=== PATIENT | female | born 1980 | race American Indian/Alaskan Native ===

== ENCOUNTER 2018-03-20 17:01 | Inpatient (IN) | payer BC, MEDICAID ==
--- NOTE | 2018-03-20 17:52 | History and Physical Report ---
<CHERYL WOODS - Last Filed: 03/20/18 18:35> History of Present Illness Date of examination: 03/20/18 (Sent in by [facility] for delivery; SROM 1415) Date of admission: 03/20/18 17:01 History of present illness: EDC Confirmation: 04/09/2018 Gestational Age: 7 3/7 weeks Past History : 4 # 1 Weeks Gestation: term Anesthesia type: none Delivery location: [place] Sex: Male weight: 6-12 Past Medical History: Reviewed history from 08/02/2010 and no changes required: Hypertension Past Medical History Abnormal PAP: positive SABIHA Exposure: negative Infertility: negative Uterine Anomaly: negative Uterine Surgery (not C/S): negative Other Gynecologic Problems: negative Social Hx: Patient is single Smoking History: Patient has never smoked. Infection History Hx of STD: none HIV Risk Eval: low risk Hepatitis B Risk Eval: low risk Personal hx. of genital herpes: no Partner hx. of genital herpes: no Rash, Viral, or Febrile illness since last LMP? no Varicella/Chicken Pox Status: Previous Disease TB Risk: no Genetic History ADVANCED MATERNAL AGE Congenital Heart Defect: Mom: no Dad: no Belia Disease: Mom: no Dad: no Thalassemia Mom: no Dad: no Neural Tube Defect Mom: no Dad: no Down's Syndrome Mom: no Dad: no Jamal-Sachs Mom: no Dad: no Sickle Cell Disease/Trait Mom: no Dad: no Hemophilia Mom: no Dad: no Muscular Dystrophy Mom: no Dad: no Cystic Fibrosis Mom: no Dad: no [place] Chorea Mom: no Dad: no Mental Retardation Mom: no Dad: no Fragile X Mom: no Dad: no Other Genetic/Chromosomal Disorder Mom: no Dad: no Child w/other defect Mom: no Dad: no Enviromental Exposures Xray Exposure: no Medication, drug, or alcohol use since LMP: no Chemical/Other Exposure: no Exposure to Cat Liter: no Hx of Parvovirus (Fifth Disease): no Occupational Exposure to Children: none Active Medications (reviewed today): PLUS 27-1 MG TABS ( VIT-FE FUMARATE-FA) 1 po qd LABETALOL HCL 200 MG ORAL TABS (LABETALOL HCL) 1 tab po bid BIOTIN () Current Allergies (reviewed today): CIPRO (Critical) Laboratory Results Routine Urinalysis Leukocytes: negative Nitrite: negative Urobilinogen: negative Protein: negative Blood: negative Ketone: negative Bilirubin: negative Glucose: negative Urine HCG: positive Review of Systems General Denies fever, chills, sweats, anorexia, fatigue, weakness, malaise, weight loss and sleep disorder. Denies nausea, vomiting, headache, swelling of legs, abdominal pain, vaginal discharge, vaginal bleeding and contractions. Denies vaginal discharge, incontinence, dysuria, hematuria, urinary frequency, amenorrhea, menorrhagia, abnormal vaginal bleeding, pelvic pain, genital sores, decreased libido, painful periods, painful sex, urinary urgency, hot flashes, vaginal dryness, vaginal itching and vaginal odor. CV Denies chest pains, palpitations, syncope, dyspnea on exertion, orthopnea, PND and peripheral edema. Resp Denies cough, dyspnea at rest, excessive sputum, hemoptysis, wheezing and pleurisy. GI Denies nausea, vomiting, diarrhea, constipation, change in bowel habits, abdominal pain, melena, hematochezia, jaundice, gas/bloating, indigestion/ heartburn, dysphagia and odynophagia. Endo Denies cold intolerance, heat intolerance, polydipsia, polyphagia, polyuria and unusual weight change. Breast Denies left breast lump, right breast lump, nipple discharge, bloody discharge from nipple, breast pain, abnormal mammogram and breast enlargement. MS Denies back pain, joint pain, joint swelling, muscle cramps, muscle weakness, stiffness, arthritis, sciatica, restless legs, leg pain at night and leg pain with exertion. Derm Denies rash, itching, dryness and suspicious lesions. Neuro Denies paralysis, paresthesias, headache, seizures, tremors, vertigo, transient blindness, frequent falls, frequent headaches and difficulty walking. Psych Denies depression, anxiety, irritability and mood swings. Eyes Denies blurring, diplopia, irritation, discharge, vision loss, eye pain and photophobia. ENT Denies earache, ear discharge, tinnitus, decreased hearing, nasal congestion, nosebleeds, sore throat and hoarseness. Allergy Denies urticaria, allergic rash, hay fever and recurrent infections. Heme Denies abnormal bruising, bleeding and enlarged lymph nodes. Past History - Obstetrical History Expected Date of Delivery: 04/09/18 Actual Gestation: 37 Week(s) 1 Day(s) : 4 Para: 1 Hx # Term Pregnancies: 1 Spontaneous Abortions: 2 Number of Living Children: 1 Medications and Allergies Allergies Allergy/AdvReac Type Severity Reaction Status Date / Time No Known Allergies Allergy Unverified 03/20/18 18:16 - Vital Signs Vital signs: Vital Signs Pulse BP 96 H 144/80 03/20/18 17:35 03/20/18 17:35 Temp Pulse Resp BP Pulse Ox 93 H 138/84 03/20/18 17:50 03/20/18 17:50 - Physical Exam Breasts: Positive: deferred Cardiovascular: Regular rate, Normal S1, Normal S2 Lungs: Positive: Normal air movement Abdomen: Positive: normal appearance, soft, normal bowel sounds. Negative: distention, tenderness Genitourinary (Female): Positive: normal external genitalia, normal perenium Vulva: both: normal Vagina: Positive: normal moisture. Negative: discharge Cervix: Negative: lesion, discharge Uterus: Positive: normal size, normal contour Adnexa: both: normal Anus/Rectum: Positive: normal perianal skin, heme negative. Negative: rectal mass, hemorrhoids Extremities: Positive: edema Deep Tendon Reflex Grade: Normal +2 - Obstetrical FHR: category 1 Uterine Contraction Monitor Mode: External Cervical Dilatation: 1 (clear fluid noted) Cervical Effacement Percentage: 50 station: -3 Uterine Contraction Pattern: Irregular Uterine Tone Measurement Phase: Resting Uterine Contraction Intensity: Mild Results All other labs normal. Strep Gp B MARY Negative 03-05-18 HBsAg Screen Negative Negative *1 RPR Non Reactive Non Reactive *2 Rubella Antibodies, IgG 15.40 index Immune >0.99 *3 Non-immune <0.90 Equivocal 0.90 - 0.99 Immune >0.99 ABO Grouping B *4 Rh Factor Positive *5 Please note: Prior records for this patient's ABO / Rh type are not available for additional verification. Antibody Screen Negative Negative *6 WBC 7.7 x10E3/uL 3.4-10.8 *7 RBC 4.29 x10E6/uL 3.77-5.28 *8 Hemoglobin 12.2 g/dL 11.1-15.9 *9 Hematocrit 35.5 % 34.0-46.6 *10 MCV 83 fL 79-97 *11 MCH 28.4 pg 26.6-33.0 *12 MCHC 34.4 g/dL 31.5-35.7 *13 RDW 14.1 % 12.3-15.4 *14 Platelets 318 x10E3/uL 150-379 *15 Neutrophils 62 % Not Estab. *16 Lymphs 27 % Not Estab. *17 Monocytes 10 % Not Estab. *18 Eos 1 % Not Estab. *19 Basos 0 % Not Estab. *20 ! Immature Cells <No Reported Value> *21 Neutrophils (Absolute) 4.8 x10E3/uL 1.4-7.0 *22 Lymphs (Absolute) 2.0 x10E3/uL 0.7-3.1 *23 Monocytes(Absolute) 0.7 x10E3/uL 0.1-0.9 *24 Eos (Absolute) 0.1 x10E3/uL 0.0-0.4 *25 Baso (Absolute) 0.0 x10E3/uL 0.0-0.2 *26 ! Immature Granulocytes 0 % Not Estab. *27 ! Immature Grans (Abs) 0.0 x10E3/uL 0.0-0.1 *28 ! NRBC <No Reported Value> *29 Hematology Comments: <No Reported Value> *30 Tests: (2) Comp. Metabolic Panel (14) (135208) Glucose, Serum [L] 58 mg/dL 65-99 *31 BUN 8 mg/dL 6-20 *32 Creatinine, Serum 0.85 mg/dL 0.57-1.00 *33 ! eGFR If NonAfricn Am 87 mL/min/1.73 >59 *34 ! eGFR If Africn Am 101 mL/min/1.73 >59 *35 BUN/Creatinine Ratio 9 9-23 *36 Sodium, Serum 138 mmol/L 134-144 *37 Potassium, Serum 4.5 mmol/L 3.5-5.2 *38 Chloride, Serum 100 mmol/L 96-106 *39 Carbon Dioxide, Total 22 mmol/L 18-29 *40 Calcium, Serum 10.0 mg/dL 8.7-10.2 *41 Protein, Total, Serum 7.5 g/dL 6.0-8.5 *42 Albumin, Serum 4.0 g/dL 3.5-5.5 *43 Globulin, Total 3.5 g/dL 1.5-4.5 *44 A/G Ratio [L] 1.1 1.2-2.2 *45 Bilirubin, Total 0.7 mg/dL 0.0-1.2 *46 Alkaline Phosphatase, S 51 IU/L 39-117 *47 AST (SGOT) 23 IU/L 0-40 *48 ALT (SGPT) 13 IU/L 0-32 *49 Tests: (3) LD Isoenzymes (942642) LDH 212 IU/L 119-226 *50 (LD) Fraction 1 27 % 17-32 *51 (LD) Fraction 2 33 % 25-40 *52 (LD) Fraction 3 23 % 17-27 *53 (LD) Fraction 4 8 % 5-13 *54 (LD) Fraction 5 9 % 4-20 *55 Tests: (4) Creatinine Clearance (927193) Creatinine, Urine 107.7 mg/dL Not Estab. *56 Creatinine, Ur 24hr 1189 mg/24 hr 800-1800 *57 Creatinine Clearance 97 mL/min 88-128 *58 The above range is based on 1.73 square meter average body surface area. Tests: (5) Cystic Fibrosis Profile (520261) ! CF, Screen Comment: *59 RESULTS: Negative for 32 mutations analyzed Tests: (6) Protein Total, Qn, 24-Hr Urine (751546) Protein,Total,Urine 22.3 mg/dL Not Estab. *61 Prot,24hr calculated [H] 246 mg/24 hr 30-150 *62 Tests: (7) HB Solu + Rflx [facility] (478384) Hemoglobin (Hgb) Solubility Negative Negative *63 Tests: (8) Panel 501726 (453891) HIV Screen 4th Generation wRfx Non Reactive Non Reactive *64 Tests: (9) HCV Ab w/Rflx to Verification (314501) ! HCV Ab <0.1 s/co ratio 0.0-0.9 *65 Tests: (10) Comment: (657291) ! Comment: SPRCS *66 Non reactive HCV antibody screen is consistent with no HCV infection, unless recent infection is suspected or other evidence exists to indicate HCV infection. Tests: (11) Urine Culture, Routine ([id number]) Urine Culture, Routine [A] Final report *67 Tests: (12) Result (382163) ! Result 1 [A] "Result Below..." *68 RESULT: Enterococcus species 50,000-100,000 colony forming units per mL For Enterococcus species, cephalosporins, aminoglycosides (except for high-level resistance screening), clindamycin, and trimethoprim- sulfamethoxazole are not effective clinically. Fluoroquinolones are used primarily for treating urinary tract infections. (CLSI, C410-P69, 2009) Note: this isolate is vancomycin-susceptible. This information is provided for epidemiologic purposes only: vancomycin is not among the antibiotics recommended for therapy of urinary tract infections caused by Enterococcus. ! Result 2 MUG *69 Mixed urogenital amanda 25,000-50,000 colony forming units per mL Assessment and Plan aware of admission. 37yo sent from [facility] with ROM MJ 4 Vertex by US BPP /, Dopplers nl. Chronic htn on no meds at this time. All orders in EMR IUP @ 37w1d with PROM clear fluid. Plan low dose pitocin tonight. - Patient Problems (1) Chronic hypertension affecting Onset Date: Unknown Current Visit: Yes Status: Acute Plan to address problem: Pt was seen by [facility] today for routine f/u. Pt reported LOF while enroute to her appt. Pt had BP 176/116 she told them her son was in an accident at work and that caused her BP to be so high. BP on arrival here 144/80. Now it is 127/85. Pt denies HALLMAN, blurred vision, chest pain. PIH labs drawn. PreE precautions. SCD on. Augmentation of labor started (2) Spontaneous rupture of membranes Onset Date: ~03/20/18 Current Visit: Yes Status: Acute Plan to address problem: Pt stated ROM @ 1415 today Clear fluid. Fluid noted on exam glove by CNM when pt was checked. MJ 4 in [facility] office. Augmentation of labor started. <PELON MACIAS - Last Filed: 03/20/18 20:21> History of Present Illness Date of admission: 03/20/18 17:01 Medications and Allergies Active Meds: Active Medications Ephedrine Sulfate (Ephedrine Sulfate) 10 mg IV Q2M PRN PRN Reason: Hypotension Fentanyl (Sublimaze) 100 mcg IV Q2H PRN PRN Reason: Labor Pain Lactated Ringer's (Lactated Ringers) 1,000 mls @ 125 mls/hr IV DIRECT ANDRES Oxytocin/Sodium Chloride (Pitocin/Ns 20 Unit/1000ml Drip) 20 units in 1,000 mls @ 125 mls/hr IV DIRECT ANDRES Oxytocin/Sodium Chloride (Pitocin/Ns 30 Unit/500ml) 30 units in 500 mls @ 1 mls /hr IV TITR ANDRES; Protocol Mineral Oil (Mineral Oil) 30 ml PO QHS PRN PRN Reason: Constipation Ondansetron HCl (Zofran) 4 mg IV Q8H PRN PRN Reason: Nausea And Vomiting Terbutaline Sulfate (Brethine) 0.25 mg SUB-Q ONCE PRN PRN Reason: Hyperstimulation/Hypertonicity - Vital Signs Vital signs: Vital Signs Pulse BP 96 H 144/80 03/20/18 17:35 03/20/18 17:35 Temp Pulse Resp BP Pulse Ox 98.7 F 101 H 16 116/68 100 03/20/18 17:58 03/20/18 20:14 03/20/18 17:58 03/20/18 20:05 03/20/18 20:14 Results Result Diagrams: 03/20/18 18:13 03/20/18 18:13 Abnormal lab results 03/20/18 03/20/18 03/20/18 Range/Units 18:13 18:13 Unknown RDW 17.4 H (13.2-15.2) % Creatinine 0.6 L (0.7-1.2) mg/dL Urine WBC (Auto) 16.0 H (0.0-6.0) /HPF All other labs normal. Assessment and Plan - Patient Problems (1) 37 weeks gestation of Current Visit: Yes Status: Acute (2) Chronic hypertension affecting Onset Date: Unknown Current Visit: Yes Status: Acute Plan to address problem: Patient denies, HALLMAN, visual changes or RUQ pain, BP's stable now, UA noted however this is a CC specimen contaminated with blood d/t ROM. Doubt Preeclampsia at this time, observe closely consider MgSO4 therapy if bp's increase or symptoms occur. Plan of care explained, questions encouraged and answered, she voiced understanding and agrees. (3) Elderly multigravida in third trimester Current Visit: Yes Status: Acute (4) Spontaneous rupture of membranes Onset Date: ~03/20/18 Current Visit: Yes Status: Acute
[2018-03-20] MEDS ORDERED: MINERAL OIL PO PRN (18:02)
[2018-03-20] MEDS ORDERED: ZOFRAN IV PRN (18:02)
[2018-03-20] MEDS ORDERED: BRETHINE SUB-Q PRN (18:02)
[2018-03-20] MEDS ORDERED: ePHEDrine SULFATE IV PRN (18:02)
[2018-03-20] MEDS ORDERED: XYLOCAINE 2% INFILTRATI ONE (18:02)
[2018-03-20 18:39] LABS: Hematocrit 34.4 % (30.3-42.9); Hemoglobin 11.4 gm/dl (10.1-14.3); Mean Corpuscular HGB Conc 33 % (30-34); Mean Corpuscular Hemoglobin 28 pg (28-32); Mean Corpuscular Volume 86 fl (79-97); Platelet Count 297 K/mm3 (140-440); Red Blood Count 4.01 M/mm3 (3.65-5.03); Red Cell Distribution Width 17.4 % (13.2-15.2)
[2018-03-20 18:56] LABS: Alanine Aminotransferase 10 units/L (7-56); Uric Acid 5.8 mg/dL (3.5-7.6)
[2018-03-20] MEDS ORDERED: PITOCin/NS 30 UNIT/500ML 30 UNITS/500 ML BAG IV SCH ×2 (19:00)
[2018-03-20] MEDS ORDERED: PITOCin/NS 20 UNIT/1000ML DRIP 20 UNITS/1,000 ML BAG IV SCH (19:00)
[2018-03-20 19:52] LABS: Bacteria,Urine 2+ /HPF (Negative); Bilirubin,Urine NEG (Negative); Blood,Urine MOD (Negative); Color,Urine Yellow (Yellow); Mucus,Urine FEW /HPF; Urobilinogen,Urine < 2.0 mg/dL (<2.0)
[2018-03-21] MEDS: SUBLIMAZE IV PRN ×2 (01:43→06:12)
[2018-03-21] MEDS: LACTATED RINGERS 1,000 ML IV SCH ×3 (07:15→09:34)
--- NOTE | 2018-03-21 07:29 | Progress Note ---
Assessment and Plan Patient c/o ctx feeling stronger this morning, fht reviewed with variables occurring with ctx. d/t prelabor ROM since yesterday, variables could be a result of cord compression. plan reviewed with patient and family, all questions addressed. IUPC placed without difficulty, will start amnioinfusion. Plan to start increasing pitocin 4x4. Epidural as needed. Pt denies HALLMAN, visual changes or epigastric pain. - Patient Problems (1) Premature rupture of membranes Current Visit: Yes Status: Acute Qualifiers: PROM gestational age: full term (2) 37 weeks gestation of Current Visit: Yes Status: Acute (3) Chronic hypertension affecting Onset Date: Unknown Current Visit: Yes Status: Acute Plan to address problem: no s/s pre-e htn managed without medications throughout Will continue to monitor closely. Subjective - Subjective Date of service: 03/21/18 Principal diagnosis: IUP @ 37, PPROM, HTN Patient reports: loss of fluid, contractions Objective - Vital Signs Vital Signs: Vital Signs - 12hr 03/20/18 03/20/18 03/20/18 19:29 19:34 19:35 Temperature Pulse Rate 112 H 96 H 94 H Respiratory Rate Blood Pressure 129/76 Blood Pressure [Left] O2 Sat by Pulse 100 100 Oximetry 03/20/18 03/20/18 03/20/18 19:39 19:43 19:44 Temperature Pulse Rate 98 H 92 H 102 H Respiratory Rate Blood Pressure 123/56 Blood Pressure [Left] O2 Sat by Pulse 100 100 Oximetry 03/20/18 03/20/18 03/20/18 19:49 19:50 19:54 Temperature Pulse Rate 105 H 101 H 105 H Respiratory Rate Blood Pressure 126/61 Blood Pressure [Left] O2 Sat by Pulse 100 100 Oximetry 03/20/18 03/20/18 03/20/18 19:59 20:04 20:05 Temperature Pulse Rate 103 H 103 H 105 H Respiratory Rate Blood Pressure 116/68 Blood Pressure [Left] O2 Sat by Pulse 100 100 Oximetry 03/20/18 03/20/18 03/20/18 20:09 20:14 20:19 Temperature Pulse Rate 101 H 101 H 98 H Respiratory Rate Blood Pressure Blood Pressure [Left] O2 Sat by Pulse 100 100 100 Oximetry 03/20/18 03/20/18 03/20/18 20:20 20:24 20:29 Temperature 98.2 F Pulse Rate 93 H 93 H 118 H Respiratory 20 Rate Blood Pressure 120/66 Blood Pressure 120/66 [Left] O2 Sat by Pulse 100 100 Oximetry 03/20/18 03/20/18 03/20/18 20:34 20:39 20:44 Temperature Pulse Rate 99 H 110 H 106 H Respiratory Rate Blood Pressure Blood Pressure [Left] O2 Sat by Pulse 100 100 100 Oximetry 03/20/18 03/20/18 03/20/18 20:49 20:54 20:59 Temperature Pulse Rate 103 H 100 H 116 H Respiratory Rate Blood Pressure Blood Pressure [Left] O2 Sat by Pulse 100 100 100 Oximetry 03/20/18 03/20/18 03/20/18 21:04 21:09 21:14 Temperature Pulse Rate 118 H 98 H 92 H Respiratory Rate Blood Pressure Blood Pressure [Left] O2 Sat by Pulse 100 100 100 Oximetry 03/20/18 03/20/18 03/20/18 21:19 21:24 21:29 Temperature Pulse Rate 104 H 102 H 102 H Respiratory Rate Blood Pressure Blood Pressure [Left] O2 Sat by Pulse 100 100 100 Oximetry 03/20/18 03/20/18 03/20/18 21:34 21:42 21:48 Temperature Pulse Rate 106 H 107 H 118 H Respiratory Rate Blood Pressure Blood Pressure [Left] O2 Sat by Pulse 100 99 98 Oximetry 03/20/18 03/20/18 03/20/18 21:52 21:57 22:02 Temperature Pulse Rate 109 H 104 H 118 H Respiratory Rate Blood Pressure Blood Pressure [Left] O2 Sat by Pulse 99 98 98 Oximetry 03/20/18 03/20/18 03/20/18 22:07 22:12 22:17 Temperature Pulse Rate 107 H 103 H 107 H Respiratory Rate Blood Pressure Blood Pressure [Left] O2 Sat by Pulse 98 98 98 Oximetry 03/20/18 03/20/18 03/20/18 22:23 22:24 22:27 Temperature Pulse Rate 117 H 106 H 110 H Respiratory Rate Blood Pressure 111/66 Blood Pressure [Left] O2 Sat by Pulse 99 98 Oximetry 03/20/18 03/20/18 03/20/18 22:33 22:38 22:43 Temperature Pulse Rate 109 H 113 H 119 H Respiratory Rate Blood Pressure Blood Pressure [Left] O2 Sat by Pulse 98 98 99 Oximetry 03/20/18 03/20/18 03/20/18 22:47 22:53 22:57 Temperature Pulse Rate 114 H 104 H 115 H Respiratory Rate Blood Pressure Blood Pressure [Left] O2 Sat by Pulse 98 98 98 Oximetry 03/20/18 03/20/18 03/20/18 23:03 23:07 23:13 Temperature Pulse Rate 109 H 111 H 112 H Respiratory Rate Blood Pressure Blood Pressure [Left] O2 Sat by Pulse 98 98 98 Oximetry 03/20/18 03/20/18 03/20/18 23:17 23:23 23:28 Temperature Pulse Rate 104 H 106 H 99 H Respiratory Rate Blood Pressure Blood Pressure [Left] O2 Sat by Pulse 98 98 98 Oximetry 03/20/18 03/20/18 03/20/18 23:33 23:38 23:43 Temperature Pulse Rate 109 H 102 H 107 H Respiratory Rate Blood Pressure Blood Pressure [Left] O2 Sat by Pulse 98 98 98 Oximetry 03/20/18 03/20/18 03/20/18 23:47 23:52 23:57 Temperature Pulse Rate 98 H 105 H 102 H Respiratory Rate Blood Pressure Blood Pressure [Left] O2 Sat by Pulse 98 98 98 Oximetry 03/21/18 03/21/18 03/21/18 00:02 00:07 00:12 Temperature Pulse Rate 98 H 99 H 100 H Respiratory Rate Blood Pressure Blood Pressure [Left] O2 Sat by Pulse 99 98 98 Oximetry 03/21/18 03/21/18 03/21/18 00:17 00:22 00:28 Temperature Pulse Rate 107 H 98 H 101 H Respiratory Rate Blood Pressure 124/68 Blood Pressure [Left] O2 Sat by Pulse 98 99 99 Oximetry 03/21/18 03/21/18 03/21/18 00:32 00:37 00:42 Temperature Pulse Rate 98 H 99 H 96 H Respiratory Rate Blood Pressure Blood Pressure [Left] O2 Sat by Pulse 99 98 99 Oximetry 03/21/18 03/21/18 03/21/18 00:47 00:52 00:58 Temperature Pulse Rate 99 H 101 H 95 H Respiratory Rate Blood Pressure Blood Pressure [Left] O2 Sat by Pulse 98 98 98 Oximetry 03/21/18 03/21/18 03/21/18 01:03 01:07 01:13 Temperature Pulse Rate 97 H 96 H 95 H Respiratory Rate Blood Pressure Blood Pressure [Left] O2 Sat by Pulse 99 98 100 Oximetry 03/21/18 03/21/18 03/21/18 01:20 01:24 01:30 Temperature Pulse Rate 102 H 92 H 95 H Respiratory Rate Blood Pressure Blood Pressure [Left] O2 Sat by Pulse 99 98 97 Oximetry 03/21/18 03/21/18 03/21/18 01:35 01:40 01:43 Temperature Pulse Rate 96 H 91 H Respiratory 18 Rate Blood Pressure Blood Pressure [Left] O2 Sat by Pulse 98 98 Oximetry 03/21/18 03/21/18 03/21/18 01:45 01:50 01:55 Temperature Pulse Rate 96 H 96 H 91 H Respiratory Rate Blood Pressure Blood Pressure [Left] O2 Sat by Pulse 98 98 94 Oximetry 03/21/18 03/21/18 03/21/18 02:00 02:05 02:10 Temperature Pulse Rate 89 101 H 87 Respiratory Rate Blood Pressure Blood Pressure [Left] O2 Sat by Pulse 96 97 97 Oximetry 03/21/18 03/21/18 03/21/18 02:13 02:15 02:20 Temperature Pulse Rate 96 H 92 H Respiratory 18 Rate Blood Pressure Blood Pressure [Left] O2 Sat by Pulse 97 97 Oximetry 03/21/18 03/21/18 03/21/18 02:22 02:25 02:30 Temperature Pulse Rate 96 H 89 88 Respiratory Rate Blood Pressure 108/61 Blood Pressure [Left] O2 Sat by Pulse 97 97 Oximetry 03/21/18 03/21/18 03/21/18 02:35 02:40 02:45 Temperature Pulse Rate 106 H 89 101 H Respiratory Rate Blood Pressure Blood Pressure [Left] O2 Sat by Pulse 97 97 97 Oximetry 03/21/18 03/21/18 03/21/18 02:50 02:55 03:00 Temperature Pulse Rate 94 H 105 H 97 H Respiratory Rate Blood Pressure Blood Pressure [Left] O2 Sat by Pulse 97 97 98 Oximetry 03/21/18 03/21/18 03/21/18 03:05 03:10 03:15 Temperature Pulse Rate 101 H 93 H 100 H Respiratory Rate Blood Pressure Blood Pressure [Left] O2 Sat by Pulse 98 98 99 Oximetry 03/21/18 03/21/18 03/21/18 03:20 03:25 03:30 Temperature Pulse Rate 95 H 97 H 99 H Respiratory Rate Blood Pressure Blood Pressure [Left] O2 Sat by Pulse 98 99 98 Oximetry 03/21/18 03/21/18 03/21/18 03:35 03:40 03:45 Temperature Pulse Rate 95 H 94 H 99 H Respiratory Rate Blood Pressure Blood Pressure [Left] O2 Sat by Pulse 98 99 98 Oximetry 03/21/18 03/21/18 03/21/18 03:50 03:55 04:00 Temperature Pulse Rate 96 H 94 H 95 H Respiratory Rate Blood Pressure Blood Pressure [Left] O2 Sat by Pulse 99 98 99 Oximetry 03/21/18 03/21/18 03/21/18 04:05 04:10 04:15 Temperature Pulse Rate 87 102 H 91 H Respiratory Rate Blood Pressure Blood Pressure [Left] O2 Sat by Pulse 99 99 99 Oximetry 03/21/18 03/21/18 03/21/18 04:20 04:22 04:25 Temperature Pulse Rate 98 H 93 H 104 H Respiratory Rate Blood Pressure 140/84 Blood Pressure [Left] O2 Sat by Pulse 99 98 Oximetry 03/21/18 03/21/18 03/21/18 04:30 04:35 04:40 Temperature Pulse Rate 96 H 92 H 99 H Respiratory Rate Blood Pressure Blood Pressure [Left] O2 Sat by Pulse 99 98 100 Oximetry 03/21/18 03/21/18 03/21/18 04:45 04:50 04:55 Temperature Pulse Rate 90 93 H 91 H Respiratory Rate Blood Pressure Blood Pressure [Left] O2 Sat by Pulse 99 100 98 Oximetry 03/21/18 03/21/18 03/21/18 05:00 05:05 05:10 Temperature Pulse Rate 87 94 H 95 H Respiratory Rate Blood Pressure Blood Pressure [Left] O2 Sat by Pulse 98 98 99 Oximetry 03/21/18 03/21/18 03/21/18 05:15 05:20 05:25 Temperature Pulse Rate 94 H 100 H 90 Respiratory Rate Blood Pressure Blood Pressure [Left] O2 Sat by Pulse 99 99 98 Oximetry 03/21/18 03/21/18 03/21/18 05:30 05:35 05:40 Temperature Pulse Rate 101 H 93 H 91 H Respiratory Rate Blood Pressure Blood Pressure [Left] O2 Sat by Pulse 99 99 100 Oximetry 03/21/18 03/21/18 03/21/18 05:45 05:50 05:55 Temperature Pulse Rate 96 H 95 H 103 H Respiratory Rate Blood Pressure Blood Pressure [Left] O2 Sat by Pulse 98 99 98 Oximetry 03/21/18 03/21/18 03/21/18 06:00 06:05 06:10 Temperature Pulse Rate 93 H 103 H 102 H Respiratory Rate Blood Pressure Blood Pressure [Left] O2 Sat by Pulse 98 99 99 Oximetry 03/21/18 03/21/18 06:12 06:42 Temperature Pulse Rate Respiratory 18 18 Rate Blood Pressure Blood Pressure [Left] O2 Sat by Pulse Oximetry - Exam Breasts: normal Cardiovascular: Regular rate Lungs: Clear to auscultation Abdomen: Present: normal appearance, soft, normal bowel sounds Vulva: both: normal Uterus: Present: normal FHR: category 2 Uterine Contraction Monitor Mode: Internal Cervical Dilatation: 2 Cervical Effacement Percentage: 80 station: -1 Uterine Contraction Frequency (min): 5-6 Uterine Contraction Duration: 60 Uterine Contraction Pattern: Regular Uterine Tone Measurement Phase: Contraction Uterine Contraction Intensity: Mild Extremities: normal - Labs Labs: Abnormal Labs 03/20/18 03/20/18 03/20/18 18:13 18:13 Unknown RDW 17.4 H Creatinine 0.6 L Urine WBC (Auto) 16.0 H Laboratory Results - last 24 hr 03/20/18 03/20/18 03/20/18 18:13 18:13 18:13 WBC 8.7 RBC 4.01 Hgb 11.4 Hct 34.4 MCV 86 MCH 28 MCHC 33 RDW 17.4 H Plt Count 297 Creatinine 0.6 L Estimated GFR > 60 Uric Acid 5.8 AST 15 ALT 10 Lactate Dehydrogenase 177 Urine Color Urine Turbidity Urine pH Ur Specific [place] Urine Protein Urine Glucose (UA) Urine Ketones Urine Blood Urine Nitrite Urine Bilirubin Urine Urobilinogen Ur Leukocyte Esterase Urine WBC (Auto) Urine RBC (Auto) U Epithel Cells (Auto) Urine Bacteria (Auto) Urine Mucus Blood Type B POSITIVE Antibody Screen Negative 03/20/18 Unknown WBC RBC Hgb Hct MCV MCH MCHC RDW Plt Count Creatinine Estimated GFR Uric Acid AST ALT Lactate Dehydrogenase Urine Color Yellow Urine Turbidity Clear Urine pH 6.0 Ur Specific [place] 1.009 Urine Protein 100 mg/dl Urine Glucose (UA) Neg Urine Ketones Neg Urine Blood Mod Urine Nitrite Neg Urine Bilirubin Neg Urine Urobilinogen < 2.0 Ur Leukocyte Esterase Mod Urine WBC (Auto) 16.0 H Urine RBC (Auto) 35.0 U Epithel Cells (Auto) 13.0 Urine Bacteria (Auto) 2+ Urine Mucus Few Blood Type Antibody Screen
[2018-03-21] MEDS ORDERED: NACL 0.9% 1000 ML 1,000 ML VG SCH (08:00)
[2018-03-21] MEDS ORDERED: PITOCin/NS 30 UNIT/500ML 30 UNITS/500 ML BAG IV SCH (08:00)
--- NOTE | 2018-03-21 08:31 | Event Note ---
Date: 03/21/18 Agree with MW exam and not. Tracing overall reassuring. There were some occasion decel that have since resolved. Will con't with IOl for SROM at this time.
--- NOTE | 2018-03-21 09:55 | Anesthesia Consultation ---
Anesthesia Consult and Med Hx Date of service: 03/21/18 - Airway Anesthetic Teeth Evaluation: Good ROM Head & Neck: Adequate Mental/Hyoid Distance: Adequate Mallampati Class: Class II Intubation Access Assessment: Probably Good - Pre-Operative Health Status ASA Pre-Surgery Classification: ASA2 Proposed Anesthetic Plan: Epidural, Spinal - Pulmonary Hx Asthma: No COPD: No Hx Pneumonia: No - Cardiovascular System Hx Hypertension: Yes - Central Nervous System Hx Seizures: No Hx Psychiatric Problems: No - Endocrine Hx Renal Disease: No Hx End Stage Renal Disease: No Hx Hypothyroidism: No Hx Hyperthyroidism: No - Hematic Hx Anemia: No Hx Sickle Cell Disease: No - Other Systems Hx Alcohol Use: Yes
[2018-03-21] MEDS ORDERED: NARCAN 2 MG/2 ML IV PRN (10:00)
[2018-03-21] MEDS ORDERED: fentaNYL-BUPIV 2 MCG/ML-0.125% 200 MCG/100 ML BAG EPIDURAL SCH (10:00)
[2018-03-21] MEDS ORDERED: ePHEDrine SULFATE IV PRN (10:00)
--- NOTE | 2018-03-21 12:39 | Progress Note ---
Assessment and Plan Patient making good progress, now /-1, + blood show. Turned to left side with right leg placed in stirrup. Anticipate . - Patient Problems (1) Premature rupture of membranes Current Visit: Yes Status: Acute Qualifiers: PROM gestational age: full term (2) 37 weeks gestation of Current Visit: Yes Status: Acute (3) Chronic hypertension affecting Onset Date: Unknown Current Visit: Yes Status: Acute Subjective - Subjective Date of service: 03/21/18 Principal diagnosis: IUP @ 37, PPROM, HTN Patient reports: movement normal, no new complaints (comfortable with epidural) Objective - Vital Signs Vital Signs: Vital Signs - 12hr 03/21/18 03/21/18 03/21/18 00:42 00:47 00:52 Temperature Pulse Rate 96 H 99 H 101 H Respiratory Rate Blood Pressure Blood Pressure [Left] O2 Sat by Pulse 99 98 98 Oximetry 03/21/18 03/21/18 03/21/18 00:58 01:03 01:07 Temperature Pulse Rate 95 H 97 H 96 H Respiratory Rate Blood Pressure Blood Pressure [Left] O2 Sat by Pulse 98 99 98 Oximetry 03/21/18 03/21/18 03/21/18 01:13 01:20 01:24 Temperature Pulse Rate 95 H 102 H 92 H Respiratory Rate Blood Pressure Blood Pressure [Left] O2 Sat by Pulse 100 99 98 Oximetry 03/21/18 03/21/18 03/21/18 01:30 01:35 01:40 Temperature Pulse Rate 95 H 96 H 91 H Respiratory Rate Blood Pressure Blood Pressure [Left] O2 Sat by Pulse 97 98 98 Oximetry 03/21/18 03/21/18 03/21/18 01:43 01:45 01:50 Temperature Pulse Rate 96 H 96 H Respiratory 18 Rate Blood Pressure Blood Pressure [Left] O2 Sat by Pulse 98 98 Oximetry 03/21/18 03/21/18 03/21/18 01:55 02:00 02:05 Temperature Pulse Rate 91 H 89 101 H Respiratory Rate Blood Pressure Blood Pressure [Left] O2 Sat by Pulse 94 96 97 Oximetry 03/21/18 03/21/18 03/21/18 02:10 02:13 02:15 Temperature Pulse Rate 87 96 H Respiratory 18 Rate Blood Pressure Blood Pressure [Left] O2 Sat by Pulse 97 97 Oximetry 05/01/0703/21/18 03/21/18 02:20 02:22 02:25 Temperature Pulse Rate 92 H 96 H 89 Respiratory Rate Blood Pressure 108/61 Blood Pressure [Left] O2 Sat by Pulse 97 97 Oximetry 03/21/18 03/21/18 03/21/18 02:30 02:35 02:40 Temperature Pulse Rate 88 106 H 89 Respiratory Rate Blood Pressure Blood Pressure [Left] O2 Sat by Pulse 97 97 97 Oximetry 03/21/18 03/21/18 03/21/18 02:45 02:50 02:55 Temperature Pulse Rate 101 H 94 H 105 H Respiratory Rate Blood Pressure Blood Pressure [Left] O2 Sat by Pulse 97 97 97 Oximetry 03/21/18 03/21/18 03/21/18 03:00 03:05 03:10 Temperature Pulse Rate 97 H 101 H 93 H Respiratory Rate Blood Pressure Blood Pressure [Left] O2 Sat by Pulse 98 98 98 Oximetry 03/21/18 03/21/18 03/21/18 03:15 03:20 03:25 Temperature Pulse Rate 100 H 95 H 97 H Respiratory Rate Blood Pressure Blood Pressure [Left] O2 Sat by Pulse 99 98 99 Oximetry 03/21/18 03/21/18 03/21/18 03:30 03:35 03:40 Temperature Pulse Rate 99 H 95 H 94 H Respiratory Rate Blood Pressure Blood Pressure [Left] O2 Sat by Pulse 98 98 99 Oximetry 03/21/18 03/21/18 03/21/18 03:45 03:50 03:55 Temperature Pulse Rate 99 H 96 H 94 H Respiratory Rate Blood Pressure Blood Pressure [Left] O2 Sat by Pulse 98 99 98 Oximetry 03/21/18 03/21/18 03/21/18 04:00 04:05 04:10 Temperature Pulse Rate 95 H 87 102 H Respiratory Rate Blood Pressure Blood Pressure [Left] O2 Sat by Pulse 99 99 99 Oximetry 03/21/18 03/21/18 03/21/18 04:15 04:20 04:22 Temperature Pulse Rate 91 H 98 H 93 H Respiratory Rate Blood Pressure 140/84 Blood Pressure [Left] O2 Sat by Pulse 99 99 Oximetry 03/21/18 03/21/18 03/21/18 04:25 04:30 04:35 Temperature Pulse Rate 104 H 96 H 92 H Respiratory Rate Blood Pressure Blood Pressure [Left] O2 Sat by Pulse 98 99 98 Oximetry 03/21/18 03/21/18 03/21/18 04:40 04:45 04:50 Temperature Pulse Rate 99 H 90 93 H Respiratory Rate Blood Pressure Blood Pressure [Left] O2 Sat by Pulse 100 99 100 Oximetry 03/21/18 03/21/18 03/21/18 04:55 05:00 05:05 Temperature Pulse Rate 91 H 87 94 H Respiratory Rate Blood Pressure Blood Pressure [Left] O2 Sat by Pulse 98 98 98 Oximetry 03/21/18 03/21/18 03/21/18 05:10 05:15 05:20 Temperature Pulse Rate 95 H 94 H 100 H Respiratory Rate Blood Pressure Blood Pressure [Left] O2 Sat by Pulse 99 99 99 Oximetry 03/21/18 03/21/18 03/21/18 05:25 05:30 05:35 Temperature Pulse Rate 90 101 H 93 H Respiratory Rate Blood Pressure Blood Pressure [Left] O2 Sat by Pulse 98 99 99 Oximetry 03/21/18 03/21/18 03/21/18 05:40 05:45 05:50 Temperature Pulse Rate 91 H 96 H 95 H Respiratory Rate Blood Pressure Blood Pressure [Left] O2 Sat by Pulse 100 98 99 Oximetry 03/21/18 03/21/18 03/21/18 05:55 06:00 06:05 Temperature Pulse Rate 103 H 93 H 103 H Respiratory Rate Blood Pressure Blood Pressure [Left] O2 Sat by Pulse 98 98 99 Oximetry 03/21/18 03/21/18 03/21/18 06:10 06:12 06:42 Temperature Pulse Rate 102 H Respiratory 18 18 Rate Blood Pressure Blood Pressure [Left] O2 Sat by Pulse 99 Oximetry 03/21/18 03/21/18 03/21/18 07:15 08:45 08:46 Temperature 98.5 F Pulse Rate 95 H 89 92 H Respiratory 20 Rate Blood Pressure 136/81 Blood Pressure 136/81 [Left] O2 Sat by Pulse 100 100 Oximetry 03/21/18 03/21/18 03/21/18 08:51 08:56 09:01 Temperature Pulse Rate 83 89 95 H Respiratory Rate Blood Pressure Blood Pressure [Left] O2 Sat by Pulse 100 100 99 Oximetry 03/21/18 03/21/18 03/21/18 09:06 09:11 09:16 Temperature Pulse Rate 90 98 H 90 Respiratory Rate Blood Pressure Blood Pressure [Left] O2 Sat by Pulse 99 100 100 Oximetry 03/21/18 03/21/18 03/21/18 09:21 09:26 09:31 Temperature Pulse Rate 93 H 95 H 91 H Respiratory Rate Blood Pressure Blood Pressure [Left] O2 Sat by Pulse 98 100 100 Oximetry 03/21/18 03/21/18 03/21/18 09:36 09:41 09:46 Temperature Pulse Rate 106 H 95 H 100 H Respiratory Rate Blood Pressure Blood Pressure [Left] O2 Sat by Pulse 98 98 99 Oximetry 03/21/18 03/21/18 03/21/18 09:51 09:56 10:01 Temperature Pulse Rate 95 H 98 H 99 H Respiratory Rate Blood Pressure Blood Pressure [Left] O2 Sat by Pulse 99 100 100 Oximetry 03/21/18 03/21/18 03/21/18 10:07 10:10 10:12 Temperature Pulse Rate 95 H 100 H 94 H Respiratory Rate Blood Pressure 163/87 Blood Pressure [Left] O2 Sat by Pulse 100 100 Oximetry 03/21/18 03/21/18 03/21/18 10:17 10:20 10:21 Temperature Pulse Rate 98 H 60 90 Respiratory Rate Blood Pressure 128/68 Blood Pressure [Left] O2 Sat by Pulse 100 88 Oximetry 03/21/18 03/21/18 03/21/18 10:24 10:28 10:33 Temperature Pulse Rate 93 H 97 H 100 H Respiratory Rate Blood Pressure 136/71 Blood Pressure [Left] O2 Sat by Pulse 100 99 Oximetry 03/21/18 03/21/18 03/21/18 10:34 10:38 10:43 Temperature Pulse Rate 98 H 89 97 H Respiratory Rate Blood Pressure 120/63 Blood Pressure [Left] O2 Sat by Pulse 99 99 Oximetry 03/21/18 03/21/18 03/21/18 10:48 10:53 10:58 Temperature Pulse Rate 88 95 H 98 H Respiratory Rate Blood Pressure Blood Pressure [Left] O2 Sat by Pulse 100 99 99 Oximetry 03/21/18 03/21/18 03/21/18 11:03 11:08 11:13 Temperature Pulse Rate 92 H 90 87 Respiratory Rate Blood Pressure Blood Pressure [Left] O2 Sat by Pulse 100 100 100 Oximetry 03/21/18 03/21/18 03/21/18 11:18 11:23 11:28 Temperature Pulse Rate 90 87 89 Respiratory Rate Blood Pressure Blood Pressure [Left] O2 Sat by Pulse 100 100 100 Oximetry 03/21/18 03/21/18 03/21/18 11:33 11:38 11:43 Temperature Pulse Rate 86 84 93 H Respiratory Rate Blood Pressure Blood Pressure [Left] O2 Sat by Pulse 100 100 100 Oximetry 03/21/18 03/21/18 03/21/18 11:48 11:53 11:58 Temperature Pulse Rate 87 84 89 Respiratory Rate Blood Pressure Blood Pressure [Left] O2 Sat by Pulse 100 99 100 Oximetry 03/21/18 03/21/18 03/21/18 12:03 12:08 12:13 Temperature Pulse Rate 88 83 90 Respiratory Rate Blood Pressure Blood Pressure [Left] O2 Sat by Pulse 99 100 99 Oximetry 03/21/18 03/21/18 03/21/18 12:18 12:22 12:23 Temperature Pulse Rate 82 93 H 92 H Respiratory Rate Blood Pressure 135/75 Blood Pressure [Left] O2 Sat by Pulse 99 99 Oximetry 03/21/18 03/21/18 03/21/18 12:28 12:33 12:38 Temperature Pulse Rate 99 H 95 H 94 H Respiratory Rate Blood Pressure Blood Pressure [Left] O2 Sat by Pulse 99 100 100 Oximetry - Exam Breasts: normal Cardiovascular: Regular rate Lungs: Clear to auscultation Abdomen: Present: normal appearance, soft Vulva: both: normal Uterus: Present: normal FHR: auscultation normal, category 2 Uterine Contraction Monitor Mode: Internal Cervical Dilatation: 5 Cervical Effacement Percentage: 85 station: -1 Uterine Contraction Frequency (min): 2-4 Uterine Contraction Duration: 60 Uterine Contraction Pattern: Regular Uterine Tone Measurement Phase: Contraction Uterine Contraction Intensity: Strong/Firm Extremities: normal Deep Tendon Reflex Grade: Normal +2 - Labs Labs: Abnormal Labs 03/20/18 03/20/18 03/20/18 18:13 18:13 Unknown RDW 17.4 H Creatinine 0.6 L Urine WBC (Auto) 16.0 H Laboratory Results - last 24 hr 03/20/18 03/20/18 03/20/18 18:13 18:13 18:13 WBC 8.7 RBC 4.01 Hgb 11.4 Hct 34.4 MCV 86 MCH 28 MCHC 33 RDW 17.4 H Plt Count 297 Creatinine Estimated GFR Uric Acid AST ALT Lactate Dehydrogenase Urine Color Urine Turbidity Urine pH Ur Specific [place] Urine Protein Urine Glucose (UA) Urine Ketones Urine Blood Urine Nitrite Urine Bilirubin Urine Urobilinogen Ur Leukocyte Esterase Urine WBC (Auto) Urine RBC (Auto) U Epithel Cells (Auto) Urine Bacteria (Auto) Urine Mucus RPR Nonreactive Blood Type B POSITIVE Antibody Screen Negative 03/20/18 03/20/18 18:13 Unknown WBC RBC Hgb Hct MCV MCH MCHC RDW Plt Count Creatinine 0.6 L Estimated GFR > 60 Uric Acid 5.8 AST 15 ALT 10 Lactate Dehydrogenase 177 Urine Color Yellow Urine Turbidity Clear Urine pH 6.0 Ur Specific [place] 1.009 Urine Protein 100 mg/dl Urine Glucose (UA) Neg Urine Ketones Neg Urine Blood Mod Urine Nitrite Neg Urine Bilirubin Neg Urine Urobilinogen < 2.0 Ur Leukocyte Esterase Mod Urine WBC (Auto) 16.0 H Urine RBC (Auto) 35.0 U Epithel Cells (Auto) 13.0 Urine Bacteria (Auto) 2+ Urine Mucus Few RPR Blood Type Antibody Screen
--- NOTE | 2018-03-21 13:31 | Procedure Note ---
OB Delivery Note - Delivery Date of Delivery: 03/21/18 ( female) [employer]: SNUNY HASSAN Estimated blood loss: 200cc - Vaginal Delivery presentation: vertex Delivery position: OA Intrapartum events: PROM->1hr before delivery Delivery induction: oxytocin Delivery augmentation: pitocin Delivery monitor: external FHT, internal FHT Route of delivery: Delivery placenta: spontaneous Delivery cord: 3 umbilical vessels Episiotomy: none Delivery laceration: none Anesthesia: epidural Delivery comments: female del over intact perineum, placed skin to skin. 3 vessel cord clamped and cut. Placenta del intact and complete. Fundus firm, lochia scant. Pit to IVF. no laceration to repair. EBL 200. Apgars 8/9, wt 5#7oz. Mother and remain LDR stable. - Infant A at 1 minute: 8 at 5 minutes: 9 Gender: Female (5#7oz)
[2018-03-21] MEDS ORDERED: PHENERGAN PO PRN (15:49)
[2018-03-21] MEDS ORDERED: PITOCin/NS 20 UNIT/1000ML DRIP 20 UNITS/1,000 ML BAG IV SCH (15:49)
[2018-03-21] MEDS ORDERED: SODIUM CHLORIDE FLUSH SYRINGE 10 ML IV NR (15:49)
[2018-03-21] MEDS ORDERED: TYLENOL PO PRN (15:49)
[2018-03-21] MEDS ORDERED: DULCOLAX PR PRN (15:49)
[2018-03-21] MEDS ORDERED: LANSINOH TP PRN (15:49)
[2018-03-21] MEDS ORDERED: ZOFRAN IV PRN (15:49)
[2018-03-21] MEDS ORDERED: TUCKS PAD TP PRN (15:49)
[2018-03-21] MEDS ORDERED: BENADRYL PO PRN (15:49)
[2018-03-21] MEDS ORDERED: MILK OF MAGNESIA PO PRN (15:49)
[2018-03-21] MEDS: MOTRIN PO SCH ×2 (16:20→22:00)
[2018-03-22 00:35] LABS: Hemoglobin 9.7 gm/dl (10.1-14.3)
--- NOTE | 2018-03-22 06:10 | Progress Note ---
Assessment and Plan Pt resting w/o any complaints voiced. Requests d/c today if possible. Explained to pt will have to observe her BPs and wait for the baby to be d/c but will write for d/c later today. BPs 130/70-80 afebrile Pulse 100-90 FF below umb Lochia small Perineum intact H&H 08/19 drop r/t blood loss from delivery. Pt is asymptomatic. Doing well s/p delivery P: continue pathway for now. Will write for d/c later today if pt is stable and baby is cleared for d/c. Will consult with . - Patient Problems (1) Chronic hypertension affecting Onset Date: Unknown Current Visit: No Status: Acute Plan to address problem: post delivery BPs have ranged 140-120/80-70 Pt w/o HALLMAN, blurred vision, chest pain. Pt is not on any medication at this time. Subjective - Subjective Date of service: 03/22/18 (pt requests d/c today if baby can go) Principal diagnosis: S/P ; HTN; Interval history: EDC Confirmation: 04/09/2018 Gestational Age: 7 3/7 weeks Past History : 4 # 1 Weeks Gestation: term Anesthesia type: none Delivery location: [place] Sex: Male weight: 6-12 Past Medical History: Reviewed history from 08/02/2010 and no changes required: Hypertension Past Medical History Abnormal PAP: positive SABIHA Exposure: negative Infertility: negative Uterine Anomaly: negative Uterine Surgery (not C/S): negative Other Gynecologic Problems: negative Social Hx: Patient is single Smoking History: Patient has never smoked. Infection History Hx of STD: none HIV Risk Eval: low risk Hepatitis B Risk Eval: low risk Personal hx. of genital herpes: no Partner hx. of genital herpes: no Rash, Viral, or Febrile illness since last LMP? no Varicella/Chicken Pox Status: Previous Disease TB Risk: no Genetic History ADVANCED MATERNAL AGE Congenital Heart Defect: Mom: no Dad: no Belia Disease: Mom: no Dad: no Thalassemia Mom: no Dad: no Neural Tube Defect Mom: no Dad: no Down's Syndrome Mom: no Dad: no Jamal-Sachs Mom: no Dad: no Sickle Cell Disease/Trait Mom: no Dad: no Hemophilia Mom: no Dad: no Muscular Dystrophy Mom: no Dad: no Cystic Fibrosis Mom: no Dad: no [place] Chorea Mom: no Dad: no Mental Retardation Mom: no Dad: no Fragile X Mom: no Dad: no Other Genetic/Chromosomal Disorder Mom: no Dad: no Child w/other defect Mom: no Dad: no Enviromental Exposures Xray Exposure: no Medication, drug, or alcohol use since LMP: no Chemical/Other Exposure: no Exposure to Cat Liter: no Hx of Parvovirus (Fifth Disease): no Occupational Exposure to Children: none Active Medications (reviewed today): PLUS 27-1 MG TABS ( VIT-FE FUMARATE-FA) 1 po qd LABETALOL HCL 200 MG ORAL TABS (LABETALOL HCL) 1 tab po bid BIOTIN () Current Allergies (reviewed today): CIPRO (Critical) Laboratory Results Routine Urinalysis Leukocytes: negative Nitrite: negative Urobilinogen: negative Protein: negative Blood: negative Ketone: negative Bilirubin: negative Glucose: negative Urine HCG: positive Review of Systems General Denies fever, chills, sweats, anorexia, fatigue, weakness, malaise, weight loss and sleep disorder. Denies nausea, vomiting, headache, swelling of legs, abdominal pain, vaginal discharge, vaginal bleeding and contractions. Denies vaginal discharge, incontinence, dysuria, hematuria, urinary frequency, amenorrhea, menorrhagia, abnormal vaginal bleeding, pelvic pain, genital sores, decreased libido, painful periods, painful sex, urinary urgency, hot flashes, vaginal dryness, vaginal itching and vaginal odor. CV Denies chest pains, palpitations, syncope, dyspnea on exertion, orthopnea, PND and peripheral edema. Resp Denies cough, dyspnea at rest, excessive sputum, hemoptysis, wheezing and pleurisy. GI Denies nausea, vomiting, diarrhea, constipation, change in bowel habits, abdominal pain, melena, hematochezia, jaundice, gas/bloating, indigestion/ heartburn, dysphagia and odynophagia. Endo Denies cold intolerance, heat intolerance, polydipsia, polyphagia, polyuria and unusual weight change. Breast Denies left breast lump, right breast lump, nipple discharge, bloody discharge from nipple, breast pain, abnormal mammogram and breast enlargement. MS Denies back pain, joint pain, joint swelling, muscle cramps, muscle weakness, stiffness, arthritis, sciatica, restless legs, leg pain at night and leg pain with exertion. Derm Denies rash, itching, dryness and suspicious lesions. Neuro Denies paralysis, paresthesias, headache, seizures, tremors, vertigo, transient blindness, frequent falls, frequent headaches and difficulty walking. Psych Denies depression, anxiety, irritability and mood swings. Eyes Denies blurring, diplopia, irritation, discharge, vision loss, eye pain and photophobia. ENT Denies earache, ear discharge, tinnitus, decreased hearing, nasal congestion, nosebleeds, sore throat and hoarseness. Allergy Denies urticaria, allergic rash, hay fever and recurrent infections. Heme Denies abnormal bruising, bleeding and enlarged lymph nodes. Patient reports: appetite normal, voiding normally, pain well controlled, ambulating normally [place]: doing well Objective - Vital Signs Latest vital signs: Vital Signs Temp Pulse Resp BP BP Pulse Ox 03/22/18 01:55 98.9 F 103 H 20 139/82 03/21/18 20:00 98.7 F 99 H 20 124/71 03/21/18 15:30 99.5 F 103 H 18 141/81 99 03/21/18 13:55 100 H 137/80 03/21/18 13:46 93 H 129/75 03/21/18 13:18 95 H 99 03/21/18 13:13 90 97 03/21/18 13:08 86 100 03/21/18 13:03 88 100 03/21/18 12:58 86 100 03/21/18 12:53 89 100 03/21/18 12:48 95 H 99 03/21/18 12:43 86 98 03/21/18 12:38 94 H 100 03/21/18 12:33 95 H 100 03/21/18 12:28 99 H 99 03/21/18 12:23 92 H 99 03/21/18 12:22 93 H 135/75 03/21/18 12:18 82 99 03/21/18 12:13 90 99 03/21/18 12:08 83 100 03/21/18 12:03 88 99 03/21/18 11:58 89 100 03/21/18 11:53 84 99 03/21/18 11:48 87 100 03/21/18 11:43 93 H 100 03/21/18 11:38 84 100 05/02/18 11:33 86 100 0518 11:28 89 100 05/18 11:23 87 100 03/21/18 11:18 90 100 03/21/18 11:13 87 100 03/21/18 11:08 90 100 03/21/18 11:03 92 H 100 03/21/18 10:58 98 H 99 03/21/18 10:53 95 H 99 03/21/18 10:48 88 100 03/21/18 10:43 97 H 99 03/21/18 10:38 89 99 03/21/18 10:34 98 H 120/63 03/21/18 10:33 100 H 99 03/21/18 10:28 97 H 100 03/21/18 10:24 93 H 136/71 03/21/18 10:21 90 128/68 03/21/18 10:20 60 88 03/21/18 10:17 98 H 100 03/21/18 10:12 94 H 100 03/21/18 10:10 100 H 163/87 03/21/18 10:07 95 H 100 03/21/18 10:01 99 H 100 03/21/18 09:56 98 H 100 03/21/18 09:51 95 H 99 03/21/18 09:46 100 H 99 03/21/18 09:41 95 H 98 03/21/18 09:36 106 H 98 03/21/18 09:31 91 H 100 03/21/18 09:26 95 H 100 03/21/18 09:21 93 H 98 03/21/18 09:16 90 100 03/21/18 09:11 98 H 100 03/21/18 09:06 90 99 03/21/18 09:01 95 H 99 03/21/18 08:56 89 100 03/21/18 08:51 83 100 03/21/18 08:46 92 H 100 03/21/18 08:45 89 136/81 03/21/18 07:15 98.5 F 95 H 20 136/81 100 05/0218 06:42 18 03/21/18 06:12 18 03/21/18 06:10 102 H 99 Intake and Output 03/21/18 03/21/18 03/22/18 14:59 22:59 06:59 Intake Total 193.4 480 360 Output Total 1300 500 Balance 1931.4 -820 -140 Intake: IV 1931.4 Lactated Ringers 1,000 ml 1931.4 @ 125 mls/hr IV DIRECT ANDRES Rx#:[id number] Oral 480 Intake, Free Water 360 Output: Urine 1300 500 Void 1300 500 Other: Total, Intake Amount 480 Total, Output Amount 600 500 Estimated Blood Loss 300 - Exam Breasts: Present: normal, Cardiovascular: Present: Regular rate Lungs: Present: Normal air movement Abdomen: Present: normal appearance, soft, normal bowel sounds Vulva: both: normal Uterus: Present: normal, firm, fundal height below umbilicus Extremities: Present: normal Deep Tendon Reflex Grade: Normal +2 Incision: Present: normal, dry, intact - Labs Labs: Abnormal lab results 03/22/18 Range/Units 00:24 Hgb 9.7 L (10.1-14.3) gm/dl Hct 30.0 L (30.3-42.9) %
--- NOTE | 2018-03-22 06:21 | Discharge Summary ---
Providers - Providers Date of Admission: 03/20/18 17:01 Date of discharge: 03/22/18 (pt requests d/c today if possible) Attending physician: PELON MACIAS 03/21/18 15:49 Consult to Valance Cutter [CONS] Routine Reason For Exam: assistance with , SNS Primary care physician: PELON MACIAS Hospitalization Reason for admission: rupture of membranes Delivery: Episiotomy: none Laceration: none Incision: normal Other procedures: none complications: none Discharge diagnosis: IUP at term delivered [place] baby: female Hospital course: Pt sent from [facility] for IOL after SROM and elevated BP in their office. Uncomplicated vaginal delivery. Condition at discharge: Good Disposition: DC-01 TO HOME OR SELFCARE - Discharge Diagnoses (1) Chronic hypertension affecting Status: Acute Comment: pt is stable Not on any antihypertensives at this time. Will follow up in OB office one week for BP check (2) (spontaneous vaginal delivery) Status: Acute Comment: RTO 4 weeks PP care Plan - Provider Discharge Summary Activity: routine, no sex for 6 weeks, no heavy lifting 4 weeks, no strenuous exercise Diet: other (NO SALT) Instructions: routine Additional instructions: [] Smoking cessation referral if applicable(refer to patient education folder for contact #) [] Refer to [facility] Booklet Call your doctor immediately for: * Fever > 100.5 * Heavy vaginal bleeding ( >1 pad per hour) * Severe persistent headache * Shortness of breath * Reddened, hot, painful area to leg or breast * Drainage or odor from incision. * Keep incision clean and dry at all times and follow doctor's instructions regarding bathing/showering - Follow up plan Follow up: PELON MACIAS MD [Primary Care Provider] - 7 Days (Congratulations! Please call [phone] to schedule your visit in 4 weeks and your blood pressure check in 1 week. Call with any headache not relieved with Tylenol, blurred vision, chest pain. Call with any concerns.)
[2018-03-22] MEDS ORDERED: PRENATAL VITAMIN PO SCH (10:00)
[2018-03-22] MEDS: MOTRIN PO SCH ×2 (13:01→21:26)
[2018-03-22] MEDS: COLACE PO SCH ×2 (13:02→21:26)
[2018-03-22] MEDS ORDERED: BOOSTRIX IM ONE (13:32)
[2018-03-23] MEDS: MOTRIN PO SCH (05:46)
[2018-03-23 17:48] VITALS: BP 144/91
== END 2018-03-23 16:30 | disposition home or self-care (01) | DRG 774 ==
LOC: LD 17:01 → OB 03-21 15:42
PROVIDERS: ADMIT Obstetrics & Gynecology; ATTEND Obstetrics & Gynecology
PROC: 10E0XZZ Delivery of Products of Conception, External Approach (ICD-10-PCS; principal; 2018-03-21)
PROC: 3E0R3BZ Introduction of Anesthetic Agent into Spinal Canal, Percutaneous Approach (ICD-10-PCS; 2018-03-21)
PROC: 00HU33Z Insertion of Infusion Device into Spinal Canal, Percutaneous Approach (ICD-10-PCS; 2018-03-21)
DX: O42.02 Full-term premature rupture of membranes, onset of labor within 24 hours of rupture (principal); O10.92 Unspecified pre-existing hypertension complicating childbirth; Z3A.37 37 weeks gestation of pregnancy; Z37.0 Single live birth; Z88.1 Allergy status to other antibiotic agents
CPT/HCPCS: 36415; 81001; 82565; 83615; 84450; 84460; 84550; 85014; 85018; 85027; 86592; 86850; 86900; 86901; 88307; 99211; G0463; J2590; J3010; J7030; J7120

== ENCOUNTER 2018-03-27 13:49 | Emergency (ER) | payer BC, MEDICAID ==
[2018-03-27 13:57] VITALS: BP 172/100
== END 2018-03-27 18:52 | disposition left against medical advice (07) ==
LOC: ED 13:49
DX: R51 Headache (principal); I10 Essential (primary) hypertension; Z53.21 Procedure and treatment not carried out due to patient leaving prior to being seen by health care provider

== ENCOUNTER 2018-05-01 07:48 | Day surgery (SDC) | payer BC, MEDICAID ==
--- NOTE | 2018-04-30 18:15 | History and Physical Report ---
History of Present Illness Date of examination: 04/23/18 Chief complaint: Sterilization History of present illness: Past History : 4 Term Births: 2 Living Children: 2 Para: 1 Aborta: 2 Elect. Ab: 1 Spont. Ab: 1 # 1 Delivery date: 2000 Weeks Gestation: term Delivery type: Anesthesia type: none Delivery location: [place] Sex: Male weight: 6-12 # 2 Delivery date: 03/21/2018 Weeks Gestation: 37+1 Delivery type: Vaginal Anesthesia type: epidural Delivery location: [facility] Sex: female weight: 5.44 Name: Bee Comments: PROM, HTN # 3 Delivery type: SAB [employer] History Uterine Surgery (not C/S): negative Operations: D&C: LEEP x2 Abnormal PAP: positive Uterine Anomaly: negative SABIHA Exposure: negative Infertility: negative Infection History HIV Risk Eval: low risk Hep B Immunized: no TB exposure: no Personal hx. of genital herpes: no Partner hx. of genital herpes: no Rash/viral illness since LMP: no Hx of STD: none Other: Bankruptcy court. Active Medications (reviewed today): IBUPROFEN 600 MG ORAL TABLET (IBUPROFEN) 1 po q6hrs as directed prn ASPIRIN 81 MG ORAL TABLET (ASPIRIN) PLUS 27-1 MG ORAL TABLET ( VIT-FE FUMARATE-FA) 1 po qd LABETALOL HCL 300 MG ORAL TABLET (LABETALOL HCL) bid Current Allergies (reviewed today): CIPRO (Critical) Past Medical History: Reviewed history from 08/02/2010 and no changes required: Hypertension Past Surgical History: Reviewed history from 08/02/2010 and no changes required: D&C: LEEP x2 Family History Summary: Reviewed history Last on 06/29/2015 and no changes required:04/30/2018 Other family member - Has No Family History of Biliary Tract Cancer - Entered On : 08/14/2017 Other family member - Has No Family History of Brain Cancer - Entered On: 2016 Other family member - Has No Family History of Colon Cancer - Entered On: 2016 Other family member - Has No Family History of DVT/PE on OCP - Entered On: 2016 Other family member - Has No Family History of Kidney/Urinary Tract Cancer - Entered On: 08/14/2017 Other family member - Has No Family History of Ovarvian Cancer - Entered On: Other family member - Has No Family History of Pancreatic Cancer - Entered On: Other family member - Has No Family History of Stomach Cancer - Entered On: 08/14 Other family member - Has No Family History of Small Bowel Cancer - Entered On: 08/14/2017 Other family member - Has No Family History of Uterine Cancer - Entered On: 08/14 General Comments - FH: Family History Breast Cancer:MGM, maternal great aunt menopausal both No Family History of Colon Cancer No Family History of Ovarian Cancer No Family History of DVT/PE on OCP Social History: Reviewed history from 08/14/2017 and no changes required: Patient is single Smoking History: Patient has never smoked. Risk Factors: Alcohol use: no Previous Tobacco Use: Signed On - 08/14/2017 Smoked Tobacco Use: Never smoker Smokeless Tobacco Use: Never Drug use: no HIV high-risk behavior: low risk Previous Alcohol Use: Signed On - 07/18/2016 Alcohol use: yes Type: rare Drinks per day: <1 Exercise: yes Times per week: 3 Type of Exercise: payton Seatbelt use: preg-group counselor % Dietary Counseling: pn yes PAP Smear History: Date of Last PAP Smear: 08/14/2017 Review of Systems General Denies fever, chills, sweats, anorexia, fatigue, weakness, malaise, weight loss and sleep disorder. Denies vaginal discharge, incontinence, dysuria, hematuria, urinary frequency, amenorrhea, menorrhagia, abnormal vaginal bleeding, pelvic pain, genital sores, decreased libido, painful periods, painful sex, urinary urgency, hot flashes, vaginal dryness, vaginal itching and vaginal odor. CV Denies chest pains, palpitations, syncope, dyspnea on exertion, orthopnea, PND and peripheral edema. Resp Denies cough, dyspnea at rest, excessive sputum, hemoptysis, wheezing and pleurisy. GI Denies nausea, vomiting, diarrhea, constipation, change in bowel habits, abdominal pain, melena, hematochezia, jaundice, gas/bloating, indigestion/ heartburn, dysphagia and odynophagia. Endo Denies cold intolerance, heat intolerance, polydipsia, polyphagia, polyuria and unusual weight change. Breast Denies left breast lump, right breast lump, nipple discharge, bloody discharge from nipple, breast pain, abnormal mammogram and breast enlargement. MS Denies back pain, joint pain, joint swelling, muscle cramps, muscle weakness, stiffness, arthritis, sciatica, restless legs, leg pain at night and leg pain with exertion. Derm Denies rash, itching, dryness and suspicious lesions. Neuro Denies paralysis, paresthesias, headache, seizures, tremors, vertigo, transient blindness, frequent falls, frequent headaches and difficulty walking. Psych Denies depression, anxiety, irritability and mood swings. Eyes Denies blurring, diplopia, irritation, discharge, vision loss, eye pain and photophobia. ENT Denies earache, ear discharge, tinnitus, decreased hearing, nasal congestion, nosebleeds, sore throat and hoarseness. Allergy Denies urticaria, allergic rash, hay fever and recurrent infections. Heme Denies abnormal bruising, bleeding and enlarged lymph nodes. Physical Exam Appearance: well developed, well nourished, no acute distress Other Exams Lungs: no rales, rhonchi, or wheezes Heart: S1, S2, no murmur, rub, or gallop Abdomen: soft, non-tender, no masses, Genitourinary Exam Vagina: normal appearance, no lesions. Cervix: normal appearance, no lesions. Uterus: normal position, midline, mobile Adnexa: no masses or tenderness Impression & Recommendations: Problem # 1: Sterilization counseling (ICD-V25.09) (TXB81-B44.09) Instructed to stop ASA today Orders: care only (separate procedure) ([id number]) Risks of regret emphasized. Permanent and irreversible condition explained to patient. Pt verbalized understanding. Infection precautions reviewed, pt to call for any signs or symptoms of infection. Patient given ample opportunity to have all her questions answered before signing informed consent. Patient informed of possible bleeding. 1%failure rate emphasized Consent reviewed and signed . Possible laparoscopy or laparotomy explained to patient. The risks and alternatives for this surgery were reviewed with the patient. She was informed of possible bleeding, infection, injury to bowel, bladder, ureters or other adjacent organs. The patient was instructed/informed the following: The normal length of hospital stay for this procedure. Nothing to eat or drink after midnight the evening prior to surgery. Clear liquids the day before surgery. Fleets enema the day prior to surgery. Pre-op instruction sheets given. Wound care instructions given. Infection precautions reviewed, patient to call for any signs or symptoms of infection. The usual discomforts associated with this procedure were detailed. Proper use of pain medicines was reviewed. Patient was given ample opportunity to have all her questions answered before signing informed consent. Medications Added to Medication List This Visit: 1) Ibuprofen 600 Mg Oral Tablet (Ibuprofen) .... 1 po q6hrs as directed prn 2) Aspirin 81 Mg Oral Tablet (Aspirin) 3) Labetalol Hcl 300 Mg Oral Tablet (Labetalol hcl) .... Bid Prescriptions: IBUPROFEN 600 MG ORAL TABLET (IBUPROFEN) 1 po q6hrs as directed prn #30 x 1 Entered and Authorized by: Florina Amador MD Method used: Print then Give to Patient RxID: [id number] OXYCODONE-ACETAMINOPHEN 5-325 MG ORAL TABLET (OXYCODONE-ACETAMINOPHEN) 1-2po q6h #10 Tablet x 0 Entered and Authorized by: Florina Amador MD Method used: Print then Give to Patient RxID: [id number] Medications and Allergies Allergies Allergy/AdvReac Type Severity Reaction Status Date / Time ciprofloxacin [From Cipro] Allergy Intermediate Angioedema Verified 04/26/18 17: 29 Home Medications Medication Instructions Recorded Confirmed Last Taken Type Labetalol [Normodyne] 300 mg PO BID 03/21/18 04/26/18 03/19/18 History Pnv,Calcium 72/Iron/Folic Acid 1 tab PO DAILY 04/26/18 04/26/18 Unknown History [Pnv Plus Multivit Tab] Active Meds: Active Medications Cefazolin Sodium (Ancef/Sterile Water 2 Gm/20 Ml) 2 gm in 20 mls @ 80 mls/hr IV PREOP NR; Protocol Assessment and Plan - Patient Problems (1) Sterilization Status: Acute (2) Hypertension Status: Chronic Qualifiers: Hypertension type: essential hypertension Qualified Code(s): I10 - Essential (primary) hypertension
[~2018-05-01 07:48] MED LIST: ANCEF/STERILE WATER 2 GM/20 ML 2 GM/20 ML SYRINGE IV NR; MARCAINE 0.5% INFILTRATI ONE; NACL 0.9% IR ONE
[2018-05-01] MEDS ORDERED: MARCAINE 0.5% 30 ML INFILTRATI ONE (08:57)
[2018-05-01] MEDS ORDERED: ZEMURON IV ONE (09:06)
[2018-05-01] MEDS ORDERED: XYLOCAINE MPF 2% ONE (09:06)
[2018-05-01] MEDS ORDERED: DIPRIVAN 10 MG/ML IV ONE (09:07)
[2018-05-01] MEDS ORDERED: SUBLIMAZE ONE (09:07)
[2018-05-01 09:45] LABS: Hematocrit 39.8 % (30.3-42.9); Hemoglobin 12.6 gm/dl (10.1-14.3); Mean Corpuscular HGB Conc 32 % (30-34); Mean Corpuscular Hemoglobin 28 pg (28-32); Mean Corpuscular Volume 87 fl (79-97); Platelet Count 217 K/mm3 (140-440); Red Blood Count 4.57 M/mm3 (3.65-5.03); Red Cell Distribution Width 16.3 % (13.2-15.2)
[2018-05-01] MEDS ORDERED: TORADOL IV PRN (10:25)
[2018-05-01] MEDS ORDERED: ZOFRAN IV PRN (10:25)
[2018-05-01] MEDS ORDERED: DILAUDID IV PRN (10:25)
--- NOTE | 2018-05-01 10:29 | Anesthesia Consultation ---
Anesthesia Consult and Med Hx Date of service: 05/01/18 - Airway Anesthetic Teeth Evaluation: Good ROM Head & Neck: Adequate Mental/Hyoid Distance: Adequate Mallampati Class: Class II Intubation Access Assessment: Probably Good - Pulmonary Exam CTA: Yes - Cardiac Exam Cardiac Exam: RRR - Pre-Operative Health Status ASA Pre-Surgery Classification: ASA1 Proposed Anesthetic Plan: General - Pulmonary Hx Smoking: No Hx Asthma: No COPD: No Hx Pneumonia: No - Cardiovascular System Hx Hypertension: Yes - Central Nervous System Hx Seizures: No Hx Psychiatric Problems: No - Endocrine Hx Renal Disease: No Hx End Stage Renal Disease: No Hx Hypothyroidism: No Hx Hyperthyroidism: No - Hematic Hx Anemia: No Hx Sickle Cell Disease: No - Other Systems Hx Alcohol Use: Yes Hx Cancer: No
[2018-05-01] MEDS ORDERED: LACTATED RINGERS 1,000 ML IV SCH (11:00)
[2018-05-01] MEDS ORDERED: VERSED IV NR (11:00)
[2018-05-01] MEDS ORDERED: TRANSDERM-SCOP TD NR (11:00)
[2018-05-01] MEDS ORDERED: DECADRON ONE (11:21)
[2018-05-01] MEDS ORDERED: ZOFRAN ONE (11:21)
[2018-05-01] MEDS ORDERED: BLOXIVERZ ONE ×2 (11:28→12:09)
[2018-05-01] MEDS ORDERED: ROBINUL ONE ×2 (11:28→12:09)
[2018-05-01] MEDS ORDERED: TORADOL ONE (11:28)
--- NOTE | 2018-05-01 12:18 | Operative Report ---
Operative Report Operative Report: Date: 05/01/2018 Preoperative diagnosis: Desire sterilization Postoperative diagnosis: Desire sterilization Procedure: Laparoscopic bilateral salpingectomy for sterilization Surgeon: Florina Amador MD Sap Manager: [] Anesthesiologist: Aníbal Escalante M.D. Anesthesia: Gen. anesthesia EBL: Minimal Findings: Uterus slightly enlarged. Grossly normal tubes ovaries and appendix. Procedure: After risks, benefits, consequences, alternatives and complications were discussed patient voiced her understanding and desire to proceed, she was taken to the OR and placed in the supine position. After general anesthesia was induced, she was placed in the dorsal lithotomy position. Exam under anesthesia was unremarkable. She was then prepped and draped in the usual sterile fashion. After a timeout was performed, the bladder was drained of approximately 100 mL's of clear yellow urine. A operative speculum was introduced into the vagina, and anterior lip cervix was grasped with a single-toothed tenaculum. The uterus was sounded to 10 cm. The cervix was progressively dilated to allow the [employer] uterine manipulator. The tenaculum and speculum were removed. Sterile gloves were placed and attention was turned to the abdomen. An infraumbilical incision was made and a 5 mm Optiview trocar with scope and camera attached were placed through the incision. The abdomen was entered under direct visualization. The abdomen was then insufflated. No bowel, bladder, ureteral, or major vessel injury was noted. She was then placed in steep Trendelenburg position. The above findings were noted. An additional 5 mm trocar was placed through a suprapubic midline incision made approximately 2 cm superior to the symphysis pubis. A 5 mm trocar was introduced under direct visualization. No bowel, bladder or ureteral or major vascular injury was noted. The uterus was elevated, using the 5 mm [place] LigaSure device bilateral salpingectomy was performed. Each tube was removed through the suprapubic trocar. Attention was turned to the adnexa where hemostasis was noted. Again no bowel, bladder or ureteral or major vascular injury was noted. The gas was released from the abdomen under direct visualization. All areas appeared to be hemostatic again no obvious evidence of bowel, bladder, ureteral or vascular injury. Surgicel was placed over the operative sites. At this point the procedure was ended. The remaining CO2 in the abdomen was released. Patient was taken out of Trendelenburg position. The incisions were reapproximated using 4-0 Vicryl in a subcuticular manner. The incisions were then infused with half percent Marcaine without epinephrine. Then attention was turned to the vagina where the uterine manipulator was removed. No bleeding was noted from the vagina. Counts were correct 3 patient tolerated procedure well was taken to recovery in stable condition
--- NOTE | 2018-05-01 13:40 | Discharge Summary ---
Providers - Providers Date of discharge: 05/01/18 Attending physician: PELON MACIAS Primary care physician: NEELAM RIOS Hospitalization Condition: Good Hospital course: unremarkable Disposition: DC-01 TO HOME OR SELFCARE - Discharge Diagnoses (1) Sterilization Status: Acute (2) Hypertension Status: Chronic Qualifiers: Hypertension type: essential hypertension Qualified Code(s): I10 - Essential (primary) hypertension Core Measure Documentation - Palliative Care Palliative Care/ Comfort Measures: Not Applicable - Core Measures Any of the following diagnoses?: none Exam - Constitutional Vitals: Temp Pulse Resp BP Pulse Ox 97.8 F 52 L 10 L 133/84 98 05/01/18 12:18 05/01/18 13:00 05/01/18 13:08 05/01/18 13:00 05/01/18 13:00 General appearance: Present: no acute distress - Respiratory Respiratory effort: normal - Cardiovascular Rhythm: regular Plan Activity: other (No sex, no driving) Weight Bearing Status: Full Weight Bearing Diet: low salt Wound: open to air, keep clean and dry Special Instructions: no heavy lifting (>25#) Follow up with: NEELAM RIOS DO [Primary Care Provider] - 7 Days PELON MACIAS MD [Staff Physician] - 05/09/18 1:30 pm ([place])
[2018-05-01] MEDS ORDERED: ZOFRAN IV NR (15:00)
[2018-05-01 15:58] VITALS: BP 140/87
== END 2018-05-01 15:44 | disposition home or self-care (01) ==
LOC: OR 07:48
PROVIDERS: ATTEND Obstetrics & Gynecology
DX: Z30.2 Encounter for sterilization (principal); I10 Essential (primary) hypertension
CPT/HCPCS: 36415; 58661; 81025; 85027; 86850; 86900; 86901; 88302; J0690; J1100; J1170; J1885; J2250; J2405; J2704; J2710; J3010; J7120